=== PATIENT | female | born 2000 | race Caucasian/White ===

== ENCOUNTER 2022-08-07 14:19 | Emergency (ER) | payer OTHER, SELFPAY ==
[2022-08-07 14:25] VITALS: BP 113/66; PULSE 44; RESP 16; TEMP 36.9; O2SAT 97; BMI 23.5
--- NOTE | 2022-08-07 15:50 | ED_ITS ---
HPI - Abdominal Pain General Chief Complaint: Abdominal Pain Stated Complaint: Left side pain Time Seen by Provider: 08/07/22 15:49 History of Present Illness HPI narrative: This 22-year-old female comes in with left lower quadrant abdominal pain for the past 2 days. She states that the pain is rather constant but does fluctuate some. She reports that the pain is worse with movement and relieved when remaining still. She has had similar less intense and rather brief pains in her lower abdomen. She does not describe any fever, dysuria, vomiting, shortness of breath, or infection symptoms. She has had some nausea related to the pain. Related Data Previous Rx's Medication Instructions Recorded ketorolac 10 mg tablet 10 mg PO Q8H 5 days #15 tabs 08/07/22 Allergies Allergy/AdvReac Type Severity Reaction Status Date / Time almonds Allergy Uncoded 08/07/22 14:29 Review of Systems Status of ROS Reports: 10 or more systems reviewed and unremarkable except as noted in History and below Narrative Constitutional: No fevers, no weight gain or loss. Eyes: No discharge. No vision changes. HENT: No congestion, no sore throat, no ear pain. Cardiovascular: No chest pain, no palpitations. Respiratory: No shortness of breath, no wheezes, no cough. Gastrointestinal: No abdominal pain, no vomiting, no diarrhea. Genitourinary: No dysuria, no hematuria. Musculoskeletal: Normal range of motion. Skin: No rashes, no pruritis. Neurological: No dizziness, weakness, sensory change, speech change. Endo/Heme/Allergies: No bruising or bleeding. No polydipsia. Pysch: no suicidality, no anxiety, no insomnia. All other systems reviewed and are negative. Exam Narrative: Exam Narrative: Constitutional: Well-developed, well-nourished, no acute distress. HEENT: Normocephalic, atraumatic. Neck: Normal range of motion. Nontender. Supple. Heart: Regular. No murmurs. Normal rate. Intact distal pulses. Lungs: Clear to auscultation. No chest discomfort. No wheezes, rhonchi, or rales. Abdomen: Normal bowel sounds. Tenderness localized in the left lower quadrant. No rebound tenderness. Genitalia: Deferred. Back: No midline tenderness. Normal range of motion. Extremities: Normal range of motion. No injury. Skin: Intact. No rash. Warm. No erythema or pallor. Neurologic: No altered sensation. No weakness. Alert and oriented. Psychiatric: No suicidality. No anxiety or depression. No insomnia. Nursing notes and vitals signs are reviewed. Const: Vital Signs, click to edit/add: Vital Signs - 24 hr 08/07/22 14:25 Temperature 98.4 F Pulse Rate [Right Pulse Oximeter] 44 L Respiratory Rate 16 Blood Pressure [Ri ght Upper Arm] 113/66 Pulse Oximetry 97 Oxygen Delivery Me thod Room Air Course Vital Signs Vital signs: Initial Vital Signs Temperature 98.4 F 08/07/22 14:25 Temperature Source Temporal Artery Scan 08/07/22 14:25 Pulse Rate 44 L 08/07/22 14:25 Pulse Rhythm 08/07/22 14:25 Pulse Strength 3+ Normal 08/07/22 14:25 Respiratory Rate 16 08/07/22 14:25 Blood Pressure 113/66 08/07/22 14:25 Blood Pressure Mean 81 08/07/22 14:25 Blood Pressure Position Sitting 08/07/22 14:25 Pulse Oximetry 97 08/07/22 14:25 Oxygen Delivery Method 08/07/22 14:25 Vital Signs Temperature 98.4 F 08/07/22 14:25 Pulse Rate 44 L 08/07/22 14:25 Respiratory Rate 16 08/07/22 14:25 Blood Pressure 113/66 08/07/22 14:25 Pulse Oximetry 97 08/07/22 14:25 Oxygen Delivery Method 08/07/22 14:25 Temperature 98.4 F 08/07/22 14:25 Pulse Rate 44 L 08/07/22 14:25 Respiratory Rate 16 08/07/22 14:25 Blood Pressure 113/66 08/07/22 14:25 Pulse Oximetry 97 08/07/22 14:25 Oxygen Delivery Method 08/07/22 14:25 MDM - Abdominal Pain MDM Narrative Medical decision making narrative: This patient comes in with left lower quadrant abdominal pain. Her symptoms are suspicious for an ovarian cyst. She has normal vital signs. Urinalysis returns with normal results. A pelvic ultrasound does show evidence of a cyst on the left ovary measuring approximately 2.5 cm in diameter. This is likely the cause of her discomfort. She is okay to return home. I did provide a prescription for Toradol. Lab Data Labs: Lab Results 08/07/22 Range/Units 16:10 Urine Color Yellow (Yellow) Urine Appearance Clear (Clear) Urine pH 6.5 (5.0-8.5) Ur Specific Keller 1.020 (1.000-1.030) Urine Protein Negative (Negative) Urine Glucose (UA) Negative (Negative) Urine Ketones Negative (Negative) Urine Blood Negative (Negative) Urine Nitrite Negative (Negative) Urine Bilirubin Negative (Negative) Urine Urobilinogen 0.2 (0.2-1.0) Ur Leukocyte Esterase Negative (Negative) Urine RBC 0-2 (0-2) Urine WBC 0-2 (0-5) Ur Squamous Epith Cells Few (None-Few) Urine Bacteria None (None) Imaging Data US Pelvic: My impression: Left ovarian cyst. Discharge Plan Discharge Clinical Impression: Ovarian cyst Patient Disposition: Home, Self-Care Condition: Stable Additional Instructions: take medication as needed and indicated. Follow-up with OBGYN clinic if not improving or return if worsening. Prescriptions: New ketorolac 10 mg tablet 10 mg PO Q8H 5 Days Qty: 15 0RF Follow Up/Referrals: Provider,Not a Local [Primary Care Provider] - Stand Alone Forms: [email or web address] Info Instructions
--- NOTE | 2022-08-07 16:23 | CRLHL7_ITS ---
For Patients: As a result of the Century Cures Act, medical imaging exams and procedure reports are released immediately into your electronic medical record. You may view this report before your referring provider. If you have questions, please contact your health care provider. INDICATION: Left lower quadrant pain, question ovarian cyst. COMPARISON: None. TECHNIQUE: 2D mcqueen scale and color Doppler images were acquired of the pelvis using a transvaginal approach. FINDINGS: Sonographic images demonstrate a normal size and smooth outer contour of the uterus. The uterus is anteverted in position. The uterus measures 7.7 cm in length by 3.6 cm in AP diameter by 4.2 cm in transverse dimension. The myometrium has uniform echotexture. The endometrial lining measures 9 mm in composite thickness. Nabothian cysts in the cervix. The right ovary measures 3.1 x 2.0 x 1.6 cm and the left ovary measures 4.2 x 2.4 x 3.0 cm. Blood flow is seen within both ovaries. There is a 2.7 x 2.5 x 2.2 cm cyst in the left ovary which contains a thin avascular septation. Trace free fluid in the cul-de-sac. IMPRESSION: 1. 2.7 cm septated cyst in the left ovary is likely physiologic. Consider ultrasound follow-up in 6-12 weeks to ensure resolution. 2. Exam otherwise unremarkable. Dictated by Mahsa Peacock MD @ 08/07/2022 6:21:06 PM (Electronically Signed)
[2022-08-07 16:31] LABS: Appearance Urine Clear (Clear); Bilirubin Urine Negative (Negative); Blood Urine Negative (Negative); Color Urine Yellow (Yellow); Glucose Urine Negative (Negative); Ketones Urine Negative (Negative); Leukocyte Esterase Urine Negative (Negative); Nitrite Urine Negative (Negative); Protein Urine Negative (Negative); Urobilinogen Urine 0.2 (0.2-1.0); pH Urine 6.5 (5.0-8.5)
[2022-08-07 16:59] LABS: RBC Urine 0-2 (0-2); Squamous Epithelial Cell Urine Few (None-Few); WBC Urine 0-2 (0-5)
[2022-08-07] MEDS: KETOROLAC 10 MG TABLET PO (17:22)
== END 2022-08-07 18:18 | disposition home or self-care (01) ==
PROVIDERS: Emergency Provider Emergency Medicine Emergency Medical Services
DX: N83.202 Unspecified ovarian cyst, left side (principal)
CPT/HCPCS: 76830; 81001; 99284; 99285; A9270